=== PATIENT | female | born 1995 | race African-American/Black ===

== ENCOUNTER 2017-09-15 16:52 | Emergency (ER) | payer BC, MEDICAID ==
[2017-09-15] MEDS ORDERED: Acetaminophen 325 MG TAB ONE (18:12)
[2017-09-15 18:42] LABS: Bilirubin Negative (Negative); Blood, Urine Negative (Negative); Glucose, Urine (Dipstick) Negative (Negative); Ketone, Urine Negative (Negative); Nitrite Negative (Negative); Protein, Urine (Dipstick) Negative (Neg-Trace); Urobilinogen 0.2 mg/dL (0.2-1.0)
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
== END 2017-09-15 20:10 | disposition home or self-care (01) ==
LOC: ERS 16:52
DX: O99.89 Other specified diseases and conditions complicating pregnancy, childbirth and the puerperium (principal); R10.33 Periumbilical pain; O99.342 Other mental disorders complicating pregnancy, second trimester; F32.9 Major depressive disorder, single episode, unspecified; F90.9 Attention-deficit hyperactivity disorder, unspecified type; Z3A.17 17 weeks gestation of pregnancy; V43.62XA Car passenger injured in collision with other type car in traffic accident, initial encounter
CPT/HCPCS: 70450; 76705; 76805; 81003

== ENCOUNTER 2017-10-22 20:35 | Emergency (ER) | payer BC, OTHER ==
[2017-10-22 20:14] LABS: #Basophils 0.1 thou/uL (0.0-0.2); #Lymphocytes 2.2 thou/uL (1.20-3.40); #Monocytes 0.7 thou/uL (0.11-0.59); #Neutrophils 6.5 thou/uL (1.40-6.50); %Basophils 0.7 % (0.0-1.0); %Eosinophils 0.5 % (0.0-10.0); %Lymphocytes 23.1 % (21.0-51.0); Hematocrit 36.9 % (36.0-47.0); Mean Platelet Volume 6.5 fL (7.4-10.4); Red Blood Cell (RBC) Count 4.05 mill/uL (4.20-5.40); White Blood Cell (WBC) Count 9.4 thou/uL (4.8-10.8)
[2017-10-22 20:35] LABS: ALT (SGPT) 7 U/L (8-55); AST (SGOT) 16 U/L (5-34); Alkaline Phosphatase 56 U/L (40-150); Anion Gap 10 mmol/L (10-20); BUN (Urea Nitrogen) 9 mg/dL (7.0-18.7); Bilirubin, Total 0.4 mg/dL (0.2-1.2); Calc. Creatinine Clearance 0 mL/min (70-130); Carbon Dioxide 24 mmol/L (22-29); Chloride 105 mmol/L (98-107); Estimated GFR-MDRD Greater than 90; Globulin 3.1 g/dL (2.4-3.5); Protein, Total 6.5 g/dL (6.0-8.3)
[~2017-10-22 20:35] MED LIST: Promethazine HCl 25 MG/ML VIAL ONE
--- NOTE | 2017-10-22 21:11 | PDOC.LDHP ---
Labor and Delivery H&P Chief complaint: other (22 weeks with possible vag bleed and unwitnessed "siezure" in [facility]it[facility]iary.) HPI: 22 year old AA (HX ) with Dr Angulo for care. Patient incarcerated. States "has not eaten in 2 days". Here by penitentiary staff for "seizure ", not witnessed. No past SZ HX. Patient has hand written H&P in progress note. Current gestational age (weeks): 22 (1 day) Dating criteria: last menstrual period Current complications: none Abnormal US findings: No Current medications: none - Physical Exam Vital signs reviewed and normal: yes General: NAD Abdomen: gravid Extremeties: no edema - Assessment 22 weeks cleared by ED here for eval of possible vag bleed in penitentiary...none seen. - Plan Plan: observation in L&D (1. Type and RH 2. tox screen 3. IVFs 4. Sono for eval. Physical with no evidence vag bleed. Cervix not checked until sono done to check placenta. Patient with no evidence post-ictal.)
[2017-10-22 21:44] LABS: Amphetamine Not Detected (NotDetected); Methadone Not Detected (NotDetected); Methamphetamine Not Detected (NotDetected)
--- NOTE | 2017-10-22 22:27 | PDOC.EVN ---
Event Note - Event Note Event Note: Labs reviewed...normal. RH positive. Sono in process.
--- NOTE | 2017-10-22 22:37 | PDOC.EVN ---
Event Note - Event Note Event Note: Sono with anterior placenta, maybe marginal previa. Recommend resono at 26-28 weeks. OK for discharge as no evidence labor, PIH, or Vag Bleed. No sexual intercourse until repeat sono.
--- NOTE | 2017-10-22 22:59 | ULT ---
OB ULTRASOUND 10/22/17 CLINICAL HISTORY: 22 week gestation with vaginal bleeding. FINDINGS: There is evidence of a live intrauterine gestation with cardiac activity documented at 153 beat s per minute. Fetus is in a vertex lie. The placenta is located anteriorly. There is a low lying plac enta. The imaged anatomy is grossly unremarkable. SANTIAGO is subjectively normal in volume. Estimat ed weight is 482 grams. By sonographic imaging, the estimated gestational age is 21 weeks, [address] estimated date of delivery by ultrasound at February 28, 2018. The imaged anatomy does not reveal evidence of significant pathology. IMPRESSION: Live intrauterine gestation as discussed above. As necessary, imaging followup may be obtained. POS: [facility]
== END 2017-10-22 22:50 | disposition home or self-care (01) ==
LOC: ERS 20:35 → L&D/OP 20:37
DX: O99.89 Other specified diseases and conditions complicating pregnancy, childbirth and the puerperium (principal); R56.9 Unspecified convulsions; R06.4 Hyperventilation; O99.342 Other mental disorders complicating pregnancy, second trimester; F32.9 Major depressive disorder, single episode, unspecified; F90.9 Attention-deficit hyperactivity disorder, unspecified type; Z3A.22 22 weeks gestation of pregnancy
CPT/HCPCS: 36415; 76805; 80053; 80306; 84146; 85025; 86900; 86901; 96365; J2550

== ENCOUNTER 2017-12-26 21:28 | Emergency (ER) | payer BC, OTHER ==
[2017-12-26] MEDS ORDERED: Acetaminophen 500 MG TAB ONE (22:45)
== END 2017-12-26 23:28 | disposition home or self-care (01) ==
LOC: ERS 21:28
DX: O99.513 Diseases of the respiratory system complicating pregnancy, third trimester (principal); J06.9 Acute upper respiratory infection, unspecified; O99.343 Other mental disorders complicating pregnancy, third trimester; F90.9 Attention-deficit hyperactivity disorder, unspecified type; F32.9 Major depressive disorder, single episode, unspecified
CPT/HCPCS: 87081; 87430; 87804; 99283

== ENCOUNTER 2018-01-15 19:39 | Day surgery (SDC) | payer OTHER ==
[2018-01-15 20:13] VITALS: BMI 33.3
--- NOTE | 2018-01-15 20:43 | PDOC.LDHP ---
Labor and Delivery H&P Chief complaint: abdominal pain HPI: 22 y/o at 34w2d, patient of Dr. Angulo, presents with bilateral inguinal pain and low back pain for the last few days. Has not taken anything for the pain. Walking makes it worse. Denies VB, LOF, ctx, or decreased FM. ROS neg for HEENT, cv, pulm, gi, gu, neuro, psych, skin, musculoskeletal or constitutional symptoms other than mentioned above. OB History Details: 1 prior term Current complications: none Past Medical History: None Previous surgical history: none Allergies/Adverse Reactions: Allergies Allergy/AdvReac Type Severity Reaction Status Date / Time No Known Allergies Allergy Verified 01/15/18 20:15 Social history: none - Physical Exam Vital signs reviewed and normal: yes General: NAD, resting Lungs: nonlabored breathing Abdomen: gravid Extremeties: no edema FHT: category 1 (130s, mod variability, + accels, no decels) [place] contractions every: occasional - Vaginal Exam cm dilated: 0 Effacement: 0% Station: -3 - Assessment 22 y/o at 34w2d with musculoskeletal discomforts of . No e/o PTL. status reassuring with reactive NST. - Plan -: D/c home with precautions. Comfort measures discussed. Advised to keep all appointments.
== END 2018-01-15 20:45 | disposition home or self-care (01) ==
LOC: L&D/OP 19:39
PROVIDERS: ATTEND Obstetrics & Gynecology
DX: O99.89 Other specified diseases and conditions complicating pregnancy, childbirth and the puerperium (principal); R29.898 Other symptoms and signs involving the musculoskeletal system; M54.5 Low back pain; Z3A.34 34 weeks gestation of pregnancy

== ENCOUNTER 2019-01-13 20:34 | Emergency (ER) | payer OTHER ==
--- NOTE | 2019-01-13 21:31 | RAD ---
PORTABLE CHEST: 01/13/19 HISTORY: Cough. Lung fernandes are clear. No infiltrate seen. The heart and mediastinum are unremarkable. Vasculature no rmal. IMPRESSION: Negative portable chest. POS: [facility]
== END 2019-01-13 21:45 | disposition home or self-care (01) ==
LOC: ERS 20:34
DX: J06.9 Acute upper respiratory infection, unspecified (principal); F90.9 Attention-deficit hyperactivity disorder, unspecified type
CPT/HCPCS: 71045; 87804

== ENCOUNTER 2019-03-06 22:54 | Emergency (ER) | payer OTHER | END 2019-03-06 23:23 | disposition left against medical advice (07) | LOC: ERS 22:54 | DX: Z53.21 Procedure and treatment not carried out due to patient leaving prior to being seen by health care provider (principal) ==

== ENCOUNTER 2020-05-29 22:22 | Emergency (ER) | payer OTHER ==
[2020-05-29 22:55] LABS: Bacteria/HPF 4+ HPF (None Seen); Bilirubin Negative (Negative); Blood, Urine 2+ (Negative); Clarity Clear (Clear); Glucose, Urine (Dipstick) Normal (Negative); Ketone, Urine 20 mg/dL (Negative); Leukocyte Negative Leu/uL (Negative); Mucous/LPF 1+ LPF (<2+); Nitrite Negative (Negative); Pregnancy Test - Urine (BHCG) Negative (Negative); Pregu Control Background? CLEAR/WHITE (CLR/WHITE); Pregu Control Bar Appear? YES (CONTROL BAR); Protein, Urine (Dipstick) 30 mg/dL (Neg-Trace); RBC/HPF 21-50 HPF (0-3); Specific Gravity 1.035 (1.002-1.036); Specific Gravity, Urine 1.035 (1.002-1.036); Squamous Epithelial 0-3 HPF (0-3); WBC/HPF 0-3 HPF (0-3)
[2020-05-29 23:06] LABS: #Basophils 0.1 thou/uL (0.0-0.2); #Eosinphils 0.1 thou/uL (0.0-0.7); #Lymphocytes 3.9 thou/uL (1.20-3.40); #Monocytes 0.6 thou/uL (0.11-0.59); #Neutrophils 3.4 thou/uL (1.40-6.50); %Eosinophils 1.3 % (0.0-10.0); %Lymphocytes 48.2 % (21.0-51.0); %Monocytes 7.1 % (0.0-10.0); %Neutrophils 42.5 % (42.0-75.0); Hemoglobin 13.6 g/dL (12.0-16.0); Mean Corpuscular HGB CONC 32.7 g/dL (32.0-36.0); Mean Corpuscular Hemoglobin 29.4 pg (27.0-31.0); Mean Corpuscular Volume 89.9 fL (78.0-98.0); Mean Platelet Volume 6.9 fL (7.4-10.4); Platelet Count 230 thou/uL (130-400); RBC Distribution Width 11.8 % (11.5-14.5); Red Blood Cell (RBC) Count 4.62 mill/uL (4.20-5.40)
[2020-05-29] MEDS ORDERED: Ondansetron ODT 4 MG TAB ONE (23:09)
[2020-05-29 23:26] LABS: ALT (SGPT) 12 U/L (8-55); AST (SGOT) 22 U/L (5-34); Alkaline Phosphatase 58 U/L (40-110); Anion Gap 12 mmol/L (10-20); BUN (Urea Nitrogen) 8 mg/dL (7.0-18.7); Bilirubin, Total 1.1 mg/dL (0.2-1.2); Calc. Creatinine Clearance 0 mL/min (70-130); Calcium 9.1 mg/dL (7.8-10.44); Carbon Dioxide 21 mmol/L (22-29); Chloride 108 mmol/L (98-107); Estimated GFR-MDRD 77; Globulin 3.1 g/dL (2.4-3.5); Glucose 80 mg/dL (70-105); Potassium 3.3 mmol/L (3.5-5.1); Protein, Total 7.1 g/dL (6.0-8.3); Sodium 138 mmol/L (136-145)
== END 2020-05-29 23:48 | disposition home or self-care (01) ==
LOC: ERS 22:22
DX: R10.11 Right upper quadrant pain (principal); R11.2 Nausea with vomiting, unspecified; F32.9 Major depressive disorder, single episode, unspecified; Z79.899 Other long term (current) drug therapy
CPT/HCPCS: 36415; 80053; 81003; 81015; 81025; 85025; 96372; 99284; J0500; Q0162

== ENCOUNTER 2020-07-11 11:32 | Emergency (ER) | payer OTHER ==
[2020-07-11 13:05] LABS: Bacteria/HPF 2+ HPF (None Seen); Bilirubin Negative (Negative); Blood, Urine 1+ (Negative); Clarity Clear (Clear); Glucose, Urine (Dipstick) Normal (Negative); Ketone, Urine Negative (Negative); Leukocyte Negative Leu/uL (Negative); Nitrite 2+ (Negative); Protein, Urine (Dipstick) Negative (Neg-Trace); RBC/HPF 0-3 HPF (0-3); Specific Gravity, Urine 1.014 (1.002-1.036); Squamous Epithelial 0-3 HPF (0-3); Urobilinogen Normal mg/dL (Less than 2); pH, Urine 6.5 (5.0-9.0)
[2020-07-11 13:06] LABS: Pregnancy Test - Urine (BHCG) Negative (Negative); Pregu Control Background? CLEAR/WHITE (CLR/WHITE); Pregu Control Bar Appear? YES (CONTROL BAR); Specific Gravity 1.014 (1.002-1.036)
== END 2020-07-11 13:30 | disposition home or self-care (01) ==
LOC: ERS 11:32
DX: N39.0 Urinary tract infection, site not specified (principal); R59.0 Localized enlarged lymph nodes; F17.210 Nicotine dependence, cigarettes, uncomplicated; Z79.899 Other long term (current) drug therapy
CPT/HCPCS: 81003; 81015; 81025; 87081; 87430; 99284

== ENCOUNTER 2020-12-17 02:13 | Emergency (ER) | payer OTHER ==
[2020-12-17] MEDS ORDERED: Ketorolac Tromethamine 30 MG/ML VIAL ONE (02:34)
[2020-12-17] MEDS ORDERED: Dexamethasone 10 MG/ML VIAL ONE (03:19)
[2020-12-17 10:31] LABS: SARS-CoV-2 PCR by NAA Not Detected (NotDetected)
== END 2020-12-17 03:22 | disposition home or self-care (01) ==
LOC: ERS 02:13
DX: J02.0 Streptococcal pharyngitis (principal); Z20.822 Contact with and (suspected) exposure to COVID-19; F17.210 Nicotine dependence, cigarettes, uncomplicated; F32.9 Major depressive disorder, single episode, unspecified; Z79.899 Other long term (current) drug therapy
CPT/HCPCS: 87430; 87635; 87804; 96372; 99283; J1100; J1885; U0003; U0005

== ENCOUNTER 2021-01-12 13:25 | Emergency (ER) | payer OTHER ==
[2021-01-12] MEDS ORDERED: Ondansetron ODT 4 MG TAB ONE (14:42)
[2021-01-12] MEDS ORDERED: HYDROcodone/Acetaminophen 10/325 mg Tablet ONE (14:42)
--- NOTE | 2021-01-12 15:54 | RAD ---
EXAM: XR Knee Rt 4 View STANDARD PROVIDED CLINICAL HISTORY: Pain FINDINGS: There is no evidence for fracture or other acute osseous abnormality. Alignment appears anatomic. Sidra nt spaces appear preserved. IMPRESSION: No evidence for an acute osseous abnormality. If there is persistent clinical concern, conservative m anagement and follow-up imaging advised.
--- NOTE | 2021-01-12 15:54 | RAD ---
EXAM: XR Ankle Rt 3 View STANDARD PROVIDED CLINICAL HISTORY: Pain FINDINGS: There is no evidence for fracture or other acute osseous abnormality. Alignment appears anatomic. Sidra nt spaces appear preserved. IMPRESSION: No evidence for an acute osseous abnormality. If there is persistent clinical concern, conservative m anagement and follow-up imaging advised.
== END 2021-01-12 16:24 | disposition home or self-care (01) ==
LOC: ERS 13:25
DX: S80.11XA Contusion of right lower leg, initial encounter (principal); F17.210 Nicotine dependence, cigarettes, uncomplicated; V03.10XA Pedestrian on foot injured in collision with car, pick-up truck or van in traffic accident, initial encounter
CPT/HCPCS: Q0162

== ENCOUNTER 2021-03-27 11:37 | Emergency (ER) | payer OTHER ==
[2021-03-27 12:35] LABS: Hemoglobin 13.7 g/dL (12.0-16.0); Mean Corpuscular HGB CONC 32.1 g/dL (32.0-36.0); Mean Corpuscular Hemoglobin 29.1 pg (27.0-31.0); Mean Corpuscular Volume 90.7 fL (78.0-98.0); Mean Platelet Volume 6.8 fL (7.4-10.4); Platelet Count 244 thou/uL (130-400); RBC Distribution Width 11.7 % (11.5-14.5)
[2021-03-27 12:57] LABS: ALT (SGPT) 7 U/L (8-55); AST (SGOT) 15 U/L (5-34); Albumin 3.9 g/dL (3.5-5.0); Alkaline Phosphatase 57 U/L (40-110); Anion Gap 10 mmol/L (10-20); BUN (Urea Nitrogen) 7 mg/dL (7.0-18.7); Bilirubin, Total 0.6 mg/dL (0.2-1.2); Calc. Creatinine Clearance 0 mL/min (70-130); Calcium 9.1 mg/dL (7.8-10.44); Carbon Dioxide 24 mmol/L (22-29); Chloride 107 mmol/L (98-107); Globulin 2.8 g/dL (2.4-3.5); Glucose 100 mg/dL (70-105); Potassium 3.6 mmol/L (3.5-5.1); Protein, Total 6.7 g/dL (6.0-8.3); Sodium 137 mmol/L (136-145)
[2021-03-27 12:58] LABS: MDiff Complete? YES
[2021-03-27 12:59] LABS: Eosinophils 2 % (0-10); Lymphocytes 57 % (21-51); Monocytes 6 % (0-10); Neutrophil 33 % (42-75); Platelet Morphology Comment Appears Adequate; RBC Morphology Normal; Reactive Lymphocytes 2 % (0-10)
[2021-03-27] MEDS ORDERED: Ketorolac Tromethamine 30 MG/ML VIAL ONE (14:07)
[2021-03-27] MEDS ORDERED: Ondansetron ODT 4 MG TAB ONE (14:07)
[2021-03-27] MEDS ORDERED: predniSONE 20 MG TAB ONE (14:07)
== END 2021-03-27 14:55 | disposition home or self-care (01) ==
LOC: ERS 11:37
DX: B34.9 Viral infection, unspecified (principal); F17.210 Nicotine dependence, cigarettes, uncomplicated; Z79.899 Other long term (current) drug therapy; Z20.822 Contact with and (suspected) exposure to COVID-19
CPT/HCPCS: 71045; 80053; 84484; 85025; 93005; 96372; J1885; J7512; Q0162

== ENCOUNTER 2021-04-08 13:04 | Emergency (ER) | payer OTHER | END 2021-04-08 14:22 | disposition home or self-care (01) | LOC: ERS 13:04 | DX: R07.89 Other chest pain (principal); F17.210 Nicotine dependence, cigarettes, uncomplicated; Z79.899 Other long term (current) drug therapy | CPT/HCPCS: 71046; 93005 ==

== ENCOUNTER 2021-04-21 20:37 | Emergency (ER) | payer OTHER ==
[2021-04-21] MEDS ORDERED: Naproxen 500 MG TAB ONE (22:13)
[2021-04-21] MEDS ORDERED: Bacitracin 1 PK ONE (23:12)
[2021-04-21] MEDS ORDERED: Boostrix 0.5 ML (Tdap) VIAL ONE (23:12)
== END 2021-04-21 23:39 | disposition home or self-care (01) ==
LOC: ERS 20:37
DX: S80.11XA Contusion of right lower leg, initial encounter (principal); S50.311A Abrasion of right elbow, initial encounter; S60.511A Abrasion of right hand, initial encounter; M25.561 Pain in right knee; F17.210 Nicotine dependence, cigarettes, uncomplicated; V22.4XXA Motorcycle driver injured in collision with two- or three-wheeled motor vehicle in traffic accident, initial encounter
CPT/HCPCS: 90471; 90715

== ENCOUNTER 2021-11-02 08:45 | Emergency (ER) | payer OTHER ==
[2021-11-02] MEDS ORDERED: Ondansetron ODT 4 MG TAB ONE (09:17)
== END 2021-11-02 09:19 | disposition home or self-care (01) ==
LOC: ERS 08:45
DX: U07.1 COVID-19 (principal); R11.2 Nausea with vomiting, unspecified
CPT/HCPCS: 99284; Q0162

== ENCOUNTER 2022-10-19 23:05 | Emergency (ER) | payer OTHER | END 2022-10-20 00:03 | disposition left against medical advice (07) | LOC: ERS 23:05 | DX: Z53.21 Procedure and treatment not carried out due to patient leaving prior to being seen by health care provider (principal) ==

== ENCOUNTER 2023-03-01 09:40 | Emergency (ER) | payer OTHER ==
[2023-03-01] MEDS ORDERED: Dexamethasone 10 MG/ML VIAL ONE (11:17)
== END 2023-03-01 11:37 | disposition home or self-care (01) ==
LOC: ERS 09:40
DX: J32.9 Chronic sinusitis, unspecified (principal); J02.9 Acute pharyngitis, unspecified
CPT/HCPCS: 99282; J1100

== ENCOUNTER 2023-12-15 13:17 | Emergency (ER) | payer MEDICAID, OTHER ==
[2023-12-15] MEDS ORDERED: Ibuprofen 800 MG TAB ONE (14:36)
[2023-12-15] MEDS ORDERED: Bicillin LA 1.2 MILLION UNITS/2 ML SYRINGE ONE (14:36)
[2023-12-15] MEDS ORDERED: Dexamethasone 10 MG/ML VIAL ONE (14:36)
== END 2023-12-15 15:18 | disposition home or self-care (01) ==
LOC: ERS 13:17
DX: J02.0 Streptococcal pharyngitis (principal); F17.290 Nicotine dependence, other tobacco product, uncomplicated
CPT/HCPCS: 87430; 96372; 99283; J0561; J1100

== ENCOUNTER 2024-10-08 03:20 | Emergency (ER) | payer BC, SELFPAY ==
[2024-10-08] MEDS ORDERED: Acetaminophen 500 MG TAB ONE (04:56)
[2024-10-08] MEDS ORDERED: Ibuprofen 200 MG TAB ONE (04:56)
[2024-10-08] MEDS ORDERED: Boostrix 0.5 ML (Tdap) VIAL (>/=7 yrs of age) ONE (05:00)
== END 2024-10-08 06:48 | disposition home or self-care (01) ==
LOC: ERS 03:20
DX: S40.212A Abrasion of left shoulder, initial encounter (principal); M25.462 Effusion, left knee; F17.290 Nicotine dependence, other tobacco product, uncomplicated; Z23 Encounter for immunization; Z55.0 Illiteracy and low-level literacy; W05.1XXA Fall from non-moving nonmotorized scooter, initial encounter; Y93.55 Activity, bike riding; Y92.480 Sidewalk as the place of occurrence of the external cause
CPT/HCPCS: 90471; 90715